=== PATIENT | female | born 1950 | race Two or more races ===

== ENCOUNTER 2018-09-04 09:59 | Outpatient (CLI) | payer OTHER | END 2018-09-04 10:19 | disposition home or self-care (01) | LOC: SONOGRAMA 09:59 | DX: R92.0 Mammographic microcalcification found on diagnostic imaging of breast (principal); N63.41 Unspecified lump in right breast, subareolar; N63.42 Unspecified lump in left breast, subareolar; N60.11 Diffuse cystic mastopathy of right breast; N60.12 Diffuse cystic mastopathy of left breast ==

== ENCOUNTER → 2019-01-29 | Day surgery (SDC) | payer OTHER ==
[~2019-01-29] MED LIST: BUSPIRONE HCL5 MG; LISINOPRIL10 MG PO; OMEPRAZOLE20 MG PO; ZANTAC300 MG PO
== END | disposition home or self-care (01) ==
LOC: CIR.AMB 05:25
DX: C50.111 Malignant neoplasm of central portion of right female breast (principal)